=== PATIENT | female | born 1945 | race Caucasian/White ===

== ENCOUNTER 2023-06-01 11:37 | Day surgery (SDC) | payer MEDICARE ==
[2023-05-29 12:16] LABS: BASOPHILS % (AUTO) 0.7 % (0-1); EOSINOPHILS # (AUTO) 0.1 X10'3 (0-0.9); EOSINOPHILS % (AUTO) 1.6 % (0-6); LYMPHOCYTES # (AUTO) 1.3 X10'3 (1.1-4.8); LYMPHOCYTES % (AUTO) 20.8 % (21-51); MEAN CORPUSCULAR HEMOGLOBIN 32.6 PG (27.0-31.0); MEAN CORPUSCULAR HGB CONC 33.7 g/dL (33.0-36.5); MEAN CORPUSCULAR VOLUME 96.6 FL (78-98); MEAN PLATELET VOLUME 7.8 FL (7.4-10.4); MONOCYTES # (AUTO) 0.5 X10'3 (0-0.9); MONOCYTES % (AUTO) 8.1 % (2-12); NEUTROPHILS # (AUTO) 4.3 X10'3 (1.8-7.7); NEUTROPHILS % (AUTO) 68.8 % (42-75); PRE OP HEMOGLOBIN 14.2 g/dL (12.0-16.0); PRE OP PLATELET COUNT 258 X10'3 (140-440); PRE OP WHITE BLOOD COUNT 6.2 10'3 (4.8-10.8); RED BLOOD COUNT 4.35 X10'6 (4.20-5.60); RED CELL DISTRIBUTION WIDTH 13.5 % (11.5-14.5)
[2023-05-29 12:26] LABS: ALBUMIN 3.9 G/DL (3.4-5.0); ALBUMIN/GLOBULIN RATIO 1.2 (1.1-1.5); ALKALINE PHOSPHATASE 65 IU/L (46-116); BLOOD UREA NITROGEN 12 MG/DL (7-18); BUN/CREATININE RATIO 11.8 (10.0-20.0); CALCIUM 9.3 MG/DL (8.5-10.1); CHLORIDE 107 MMOL/L (99-107); CREATININE 1.02 MG/DL (0.40-0.90); PRE OP ALT 25 U/L (30-65); PRE OP ANION GAP 8 (8-16); PRE OP AST 21 U/L (10-37); PRE OP GLUCOSE 93 MG/DL (70-104); PRE OP POTASSIUM 3.7 MMOL/L (3.4-5.1); PRE OP SODIUM 141 MMOL/L (135-145); TOTAL PROTEIN 7.1 G/DL (6.4-8.2); eGFR 52 ML/MIN
[2023-06-01] VITALS (9 sets, daily range): BP systolic 144–177; BP diastolic 69–95; PULSE 68–97; RESP 13–23; TEMP 97.3; O2SAT 92–99
[~2023-06-01] VITALS: Ht 154.9 cm; Wt 81.0 kg
[~2023-06-01 11:37] MED LIST: AREDS; LIDOcaine 4% (40 mg/ml) topical solution 50ml MM ONE; RIVA20TA PO; TIMO5DRO45 OP; VIT E; [UNRECOGNIZED DRUG - OTHER]; epiNEPHrine 1 mg/ml inj IR PRN; famotidine 20mg tablet PO ONE; ringers solution, lacted 1,000 ML IV SCH
[2023-06-01] MEDS ORDERED: acetaminophen 1,000mg/100ml IV 100 ML IV ONE (13:25)
[2023-06-01] MEDS ORDERED: sevoflurane 250ml liquid IH ONE (15:22)
[2023-06-01] MEDS ORDERED: morphine 4 MG/ML inj SYRINge IV PRN (15:25)
[2023-06-01] MEDS ORDERED: ondansetron/PF 4mg/2ml inj IV PRN (15:25)
[2023-06-01] MEDS ORDERED: hydrALAZINE 20mg/ml inj. IV PRN (15:25)
[2023-06-01] MEDS ORDERED: ringers solution, lacted 1,000 ML IV SCH (15:25)
[2023-06-01] MEDS ORDERED: meperidine/PF 25mg/ml syringe IV PRN ×3 (15:25)
[2023-06-01] MEDS ORDERED: morphine 2 MG/ML inj. syringe IV PRN (15:25)
[2023-06-01] MEDS ORDERED: labetalol 20mg/4ml (5mg/ml) syringe IV PRN (15:25)
[2023-06-01] MEDS ORDERED: proCHLORperazine 10 MG/2 ml inj IV PRN (15:25)
[2023-06-01] MEDS ORDERED: midazolam 1 mg/ML 2ml injection ONE (15:26)
[2023-06-01] MEDS ORDERED: fentaNYL/PF 50MCG/1 ML 2ML syringe ONE (15:26)
[2023-06-01] MEDS ORDERED: LIDOCAINE 4% (40MG/ML) topical solution 50ml **BRONCH ONLY ONE (15:40)
[2023-06-01] MEDS ORDERED: epiNEPHrine 1 MG/ML 1 ml ampule **BRONCH ONLY ONE (15:40)
[2023-06-01] MEDS ORDERED: ondansetron/PF 4mg/2ml inj ONE (16:23)
[2023-06-01] MEDS ORDERED: rocuronium 10mg/ml inj IV ONE (16:23)
[2023-06-01] MEDS ORDERED: dexamethasone sod phosphate 4mg/ml inj. ONE (16:23)
[2023-06-01] MEDS ORDERED: propofol inj 20 ML IV ONE (16:23)
[2023-06-01] MEDS ORDERED: LIDOcaine 2% (20mg/ml) 5ml vial ONE (16:23)
[2023-06-01] MEDS ORDERED: glycopyrrolate 0.2mg/ml inj ONE (16:40)
[2023-06-01] MEDS ORDERED: neostigmine methylsulfate 1 MG/ML 10ml vial ONE (16:40)
--- NOTE | 2023-06-01 16:46 | NUR ---
Received from OR via [facility], accompanied by Anesthesiologist DR MADSEN and report given by Anesthesiologist. PATIENT WAKING UP, DENIES PAIN, V/S WNL , PIV 20G LUE, 6L O2 VIA MASK, VITAL SIGNS STABLE, NO COMPLAINTS OF PAIN. Addendum: 06/01/23 at 1709 by Sparlke Mclaughlin RN Amended: Links added.
--- NOTE | 2023-06-01 17:46 | NUR ---
ALL DISCHARGE CRITERIA HAS BEEN MET. VSS, NO COMPLAINTS OF PAIN. ABLE TO SAFELY AMBULATE AND TRANSFER SELF. IV TAKEN OUT WITHOUT ANY COMPLICATIONS. ALL DISCHARGE INSTRUCTIONS COVERED WITH PATIENT AND ALL QUESTIONS ANSWERED. PATIENT TAKEN OUT VIA WHEELCHAIR WITH ALL BELONGINGS TO PERSONAL VEHICLE WHERE FAMILY DROVE PATIENT HOME.
== END 2023-06-01 17:46 | disposition home or self-care (01) ==
LOC: PAS 11:37
PROVIDERS: ATTEND Internal Medicine Critical Care Medicine
DX: R91.8 Other nonspecific abnormal finding of lung field (principal); Z87.891 Personal history of nicotine dependence; Z85.038 Personal history of other malignant neoplasm of large intestine; Z86.718 Personal history of other venous thrombosis and embolism; Z79.01 Long term (current) use of anticoagulants; Z86.711 Personal history of pulmonary embolism; Z90.49 Acquired absence of other specified parts of digestive tract; Z88.8 Allergy status to other drugs, medicaments and biological substances; Z72.89 Other problems related to lifestyle; Z79.899 Other long term (current) drug therapy
CPT/HCPCS: 31623; 31624; 31628; 31629; 31653; 36415; 71045; 71046; 71250; 80053; 82948; 85025; 87070; 93005; 94760; J0131; J1100; J2250; J2405; J2704; J2710; J3010; J3490; J7120; Z7506; Z7508; Z7512; 31622; 31625; 31627; 31652; 31654; 88108; 88173; 88305; A4618; J0171